=== PATIENT | female | born 1990 | race Two or more races ===

== ENCOUNTER 2020-01-30 22:02 | Emergency (ER) | payer OTHER ==
[~2020-01-30] VITALS: Ht 165.1 cm; Wt 81.6 kg
[2020-01-30 22:05] VITALS: BP 123/71
[2020-01-30] MEDS ORDERED: IBUPROFEN 600 MG TABLET ONE (22:46)
[2020-01-30] MEDS ORDERED: IBUPROFEN 600 MG TABLET PO ONE (23:00)
== END 2020-01-30 22:53 ==
LOC: ER 22:05 → EDSEX 22:05 → ER 22:53
DX: Z02.89 Encounter for other administrative examinations (principal); F11.10 Opioid abuse, uncomplicated